=== PATIENT | male | born 1945 | race Caucasian/White ===

== ENCOUNTER 2016-12-16 17:56 | Emergency (ER) | payer MEDICARE, OTHER ==
--- NOTE | 2016-12-16 18:28 | Emergency Department Record ---
History of Present Illness - General Chief Complaint: Chest Pain Stated Complaint: CHEST PRESSURE, Time Seen by Provider: 12/16/16 18:19 Source: Patient Mode of Arrival: Wheelchair Limitations: No limitations - History of Present Illness Initial Comments: pt had a knee replacement in early october. he has been doing well. today he did physical therapy and then went home and mowed his lawn. while he was mowing his lawn he developed chest tightness 4/10, sob and felt near syncopal. he feels better now and his discomfort is down to a 1/10. pt has a hx of htn, hi chol and strong family hx. pt does not smoke MD Complaint: Chest pain Onset/Timin -: Hour(s) Onset: During exertion Pain Location: Substernal Pain Radiation: RUE Severity: Mild Consistency: Intermittent Improves With: Rest Worsens With: Exertion Context: New medications Other Symptoms: Burping - Related Data Home Medications Medication Instructions Recorded Confirmed Last Taken Naproxen Sodium [Aleve] 2 tab PO BID 12/16/16 12/16/16 12/16/16 Allergies Allergy/AdvReac Type Severity Reaction Status Date / Time Sulfa (Sulfonamide Allergy HIVES Verified 12/16/16 18:02 Antibiotics) Travel Screening - Travel/Exposure Within Last 30 Days Have you traveled within the last 30 days?: No - Travel/Exposure Within Last Year Have you traveled outside the [place] in the last year?: No - Additonal Travel Details Have you been exposed to anyone with a communicable illness?: No - Travel Symptoms Symptom Screening: None Review of Systems Reviewed: No additional complaints except as noted below Constitutional: Reports: As per HPI. Denies: Chills, Fever, Malaise, Night sweats, Weakness, Weight change Eyes: Reports: As per HPI. Denies: Eye discharge, Eye pain, Photophobia, Vision change ENT: Reports: As per HPI. Denies: Congestion, Dental pain, Ear pain, Epistaxis , Hearing loss, Throat pain Respiratory: Reports: As per HPI. Denies: Cough, Dyspnea, Hemoptysis, Stridor, Wheezes Cardiovascular: Reports: As per HPI. Denies: Arrhythmia, Chest pain, Dyspnea on exertion, Edema, Murmurs, Orthopnea, Palpitations, Paroxysmal nocturnal dyspnea, Rheumatic Fever, Syncope Endocrine: Reports: As per HPI. Denies: Fatigue, Heat or cold intolerance, Polydipsia, Polyuria Gastrointestinal: Reports: As per HPI. Denies: Abdominal pain, Constipation, Diarrhea, Hematemesis, Hematochezia, Melena, Nausea, Vomiting Genitourinary: Reports: As per HPI. Denies: Dysuria, Frequency, Hematuria, Incontinence, Retention, Testicular pain, Testicular mass, Urgency Musculoskeletal: Reports: As per HPI. Denies: Arthralgia, Back pain, Gout, Joint swelling, Myalgia, Neck pain Skin: Reports: As per HPI. Denies: Bruising, Change in color, Change in hair/ nails, Lesions, Pruritus, Rash Neurological: Reports: As per HPI. Denies: Abnormal gait, Confusion, Headache, Numbness, Paresthesias, Seizure, Tingling, Tremors, Vertigo, Weakness Psychiatric: Reports: As per HPI. Denies: Anxiety, Auditory hallucinations, Depression, Homicidal thoughts, Suicidal thoughts, Visual hallucinations Hematological/Lymphatic: Reports: As per HPI. Denies: Anemia, Blood Clots, Easy bleeding, Easy bruising, Swollen glands Past Medical History - SOCIAL HISTORY Smoking Status: Never smoker Alcohol Use: Occasional Drug Use: None - RESPIRATORY Hx Respiratory Disorders: No - CARDIOVASCULAR Hx Cardio Disorders: Yes Hx Hypertension: Yes Comment:: hypercholesteremia - NEURO Hx Neuro Disorders: No - GI Hx GI Disorders: No - Hx Genitourinary Disorders: No - ENDOCRINE Hx Endocrine Disorders: No - MUSCULOSKELETAL Hx Musculoskeletal Disorders: No - PSYCH Hx Psych Problems: No - HEMATOLOGY/ONCOLOGY Hx Hematology/Oncology Disorders: No Family Medical History Any Significant Family History?: Yes Hx Dementia: Mother Hx Heart Disease: Father, Brother/Sister Physical Exam - General General Appearance: Alert, Oriented x3, Cooperative, Mild distress - Head Head exam: Normal inspection - Eye Eye exam: Normal appearance, PERRL, EOMI Pupils: Normal accommodation - ENT ENT exam: Normal exam, Mucous membranes moist, Normal external ear exam, Normal orophraynx Ear exam: Normal external inspection. negative: External canal tenderness Nasal Exam: Normal inspection. negative: Discharge, Sinus tenderness Mouth exam: Normal external inspection, Tongue normal Teeth exam: Normal inspection. negative: Dental caries Throat exam: Normal inspection. negative: Tonsillar erythema, Tonsillar exudate - Neck Neck exam: Normal inspection, Full ROM. negative: Tenderness - Respiratory Respiratory exam: Normal lung sounds bilaterally. negative: Respiratory distress - Cardiovascular Cardiovascular Exam: Regular rate, Normal rhythm, Normal heart sounds - GI/Abdominal GI/Abdominal exam: Soft, Normal bowel sounds. negative: Tenderness - Rectal Rectal exam: Deferred - exam: Deferred - Extremities Extremities exam: Normal inspection, Full ROM, Normal capillary refill. negative: Tenderness - Back Back exam: Reports: Normal inspection, Full ROM. Denies: Muscle spasm, Rash noted, Tenderness - Neurological Neurological exam: Alert, CN II-XII intact, Normal gait, Oriented X3 - Psychiatric Psychiatric exam: Normal affect, Normal mood - Skin Skin exam: Dry, Intact, Normal color, Warm Course Vital Signs 12/16/16 18:05 Temperature 98.4 F Pulse Rate 81 Respiratory 18 Rate Blood Pressure 117/74 Pulse Ox 98 - Reevaluation(s) Reevaluation #1: 12/16/16 18:45 care is being assumed by dr monory Medical Decision Making - Lab Data Result diagrams: 12/16/16 18:08 12/16/16 18:08 Disposition Forms: Patient Portal Access Quality - Quality Measures Quality Measures: N/A - Blood Pressure Screening Does Patient Have Any of the Following: No Blood Pressure Classification: Normal BP Reading Systolic Measurement: 117 Diastolic Measurement: 74 Screening for High Blood Pressure: < Normal BP, F/U Not Required > [G8783]
[2016-12-16] MEDS ORDERED: NITROGLYCERIN 0.4MG SL TABLET #25 BTL SL ONE (18:29)
[2016-12-16] MEDS ORDERED: ASPIRIN 81 MG CHEWABLE TABLET PO ONE (18:29)
[2016-12-16 18:45] LABS: BASO % 0.8 % (0-6); EOS % 4.5 % (0-6); GRAN % 54.8 % (47-80); HEMATOCRIT 45.2 % (42.0-52.0); HEMOGLOBIN 15.5 gm/dl (14.0-18.0); LYMPH % 25.9 % (16-45); MEAN CELL VOLUME 84.6 fl (81-97); MEAN CORPUSCULAR HGB CONC 34.3 g/dl (32-36); PLATELET COUNT 284 K/uL (130-400); RED BLOOD COUNT 5.34 M/uL (4.40-5.70); RED CELL DISTRIBUTION WIDTH 13.2 % (11.5-14.5); WHITE BLOOD COUNT W/O DIFF 7.8 K/uL (4.2-12.2)
[2016-12-16 19:03] LABS: ALB/GLOB RATIO 1.5 (1.1-1.8); ALBUMIN 4.4 g/dL (4.0-5.0); ALKALINE PHOSPHATASE 86 U/L (40-129); ALT/SGPT 13 U/L (<41); AST/SGOT 20 U/L (10.0-50.0); BLOOD UREA NITROGEN 22 mg/dL (8-23); CKMB 1.4 ng/mL (<6.73); CREATINE PHOSPHOKINASE 94 U/L (39-308); CREATININE 0.8 mg/dL (0.7-1.2); EST GLOMERULAR FILTRATION RATE > 60 mL/min; GLUCOSE,RANDOM 99 mg/dL (74-109); TOTAL PROTEIN 7.4 g/dL (6.6-8.7)
--- NOTE | 2016-12-16 19:14 | Emergency Department Record ---
History of Present Illness - General Chief Complaint: Chest Pain Stated Complaint: CHEST PRESSURE, Time Seen by Provider: 12/16/16 18:19 Source: Patient Mode of Arrival: Wheelchair Limitations: No limitations - History of Present Illness Onset/Timin -: Hour(s) Onset: During exertion Pain Location: Substernal Pain Radiation: RUE Severity: Mild Consistency: Intermittent Improves With: Rest Worsens With: Exertion Context: New medications Other Symptoms: Burping - Related Data Home Medications Medication Instructions Recorded Confirmed Last Taken Naproxen Sodium [Aleve] 2 tab PO BID 12/16/16 12/16/16 12/16/16 Allergies Allergy/AdvReac Type Severity Reaction Status Date / Time Sulfa (Sulfonamide Allergy HIVES Verified 12/16/16 18:02 Antibiotics) Travel Screening - Travel/Exposure Within Last 30 Days Have you traveled within the last 30 days?: No - Travel/Exposure Within Last Year Have you traveled outside the [place] in the last year?: No - Additonal Travel Details Have you been exposed to anyone with a communicable illness?: No - Travel Symptoms Symptom Screening: None Review of Systems Constitutional: Reports: As per HPI. Denies: Chills, Fever, Malaise, Night sweats, Weakness, Weight change Eyes: Reports: As per HPI. Denies: Eye discharge, Eye pain, Photophobia, Vision change ENT: Reports: As per HPI. Denies: Congestion, Dental pain, Ear pain, Epistaxis , Hearing loss, Throat pain Respiratory: Reports: As per HPI. Denies: Cough, Dyspnea, Hemoptysis, Stridor, Wheezes Cardiovascular: Reports: As per HPI. Denies: Arrhythmia, Chest pain, Dyspnea on exertion, Edema, Murmurs, Orthopnea, Palpitations, Paroxysmal nocturnal dyspnea, Rheumatic Fever, Syncope Endocrine: Reports: As per HPI. Denies: Fatigue, Heat or cold intolerance, Polydipsia, Polyuria Gastrointestinal: Reports: As per HPI. Denies: Abdominal pain, Constipation, Diarrhea, Hematemesis, Hematochezia, Melena, Nausea, Vomiting Genitourinary: Reports: As per HPI. Denies: Dysuria, Frequency, Hematuria, Incontinence, Retention, Testicular pain, Testicular mass, Urgency Musculoskeletal: Reports: As per HPI. Denies: Arthralgia, Back pain, Gout, Joint swelling, Myalgia, Neck pain Skin: Reports: As per HPI. Denies: Bruising, Change in color, Change in hair/ nails, Lesions, Pruritus, Rash Neurological: Reports: As per HPI. Denies: Abnormal gait, Confusion, Headache, Numbness, Paresthesias, Seizure, Tingling, Tremors, Vertigo, Weakness Psychiatric: Reports: As per HPI. Denies: Anxiety, Auditory hallucinations, Depression, Homicidal thoughts, Suicidal thoughts, Visual hallucinations Hematological/Lymphatic: Reports: As per HPI. Denies: Anemia, Blood Clots, Easy bleeding, Easy bruising, Swollen glands Past Medical History - SOCIAL HISTORY Smoking Status: Never smoker Alcohol Use: Occasional Drug Use: None - RESPIRATORY Hx Respiratory Disorders: No - CARDIOVASCULAR Hx Cardio Disorders: Yes Hx Hypertension: Yes Comment:: hypercholesteremia - NEURO Hx Neuro Disorders: No - GI Hx GI Disorders: No - Hx Genitourinary Disorders: No - ENDOCRINE Hx Endocrine Disorders: No - MUSCULOSKELETAL Hx Musculoskeletal Disorders: No - PSYCH Hx Psych Problems: No - HEMATOLOGY/ONCOLOGY Hx Hematology/Oncology Disorders: No Family Medical History Any Significant Family History?: Yes Hx Dementia: Mother Hx Heart Disease: Father, Brother/Sister Physical Exam - General Limitations: No limitations Course Vital Signs 12/16/16 18:05 Temperature 98.4 F Pulse Rate 81 Respiratory 18 Rate Blood Pressure 117/74 Pulse Ox 98 - Reevaluation(s) Reevaluation #1: 12/16/16 19:12 Labs reviewed, D-Dimer 2.93, labs are otherwise grossly unremarkable for an acute process. EKG: NSR 97, PACs Normal axis, normal intervals No acute ST-T wave changes are present Patient was updated on all results, reports that he is resting pain-free currently. Reevaluation #2: 12/16/16 20:02 CTA Chest: No PE, No dissection, Severe coronary calcifications. After discussion with the patient and his CTA findings, will initiate transfer to [facility] for likely heart cath tomorrow. Reevaluation #3: 12/16/16 20:13 Case was discussed with Dr. Pineda, will accept transfer for further evaluation. Medical Decision Making - Lab Data Result diagrams: 12/16/16 18:08 12/16/16 18:08 Lab Results 12/16/16 12/16/16 12/16/16 Range/Units 18:08 18:08 18:08 WBC 7.8 (4.2-12.2) K/uL RBC 5.34 (4.40-5.70) M/uL Hgb 15.5 (14.0-18.0) gm/dl Hct 45.2 (42.0-52.0) % MCV 84.6 (81-97) fl MCH 29.0 (27-33) pg MCHC 34.3 (32-36) g/dl RDW 13.2 (11.5-14.5) % Plt Count 284 (130-400) K/uL MPV 11.0 H (7.4-10.4) fl Gran % 54.8 (47-80) % Lymphocytes % 25.9 (16-45) % Monocytes % 14.0 H (0-9) % Eosinophils % 4.5 (0-6) % Basophils % 0.8 (0-6) % D-Dimer 2.93 H (0-0.59) mg/L FEU Sodium 139 (136-145) mmol/L Potassium 3.2 L (3.4-4.5) mmol/L Chloride 96 L (98-107) mmol/L Carbon Dioxide 28.0 (22-29) mmol/L Anion Gap 15.0 (7-16) BUN 22 (8-23) mg/dL Creatinine 0.8 (0.7-1.2) mg/dL Estimated GFR > 60 mL/min Random Glucose 99 (74-109) mg/dL Calcium 9.4 (8.8-10.2) mg/dL Total Bilirubin 0.70 (0.2-1.0) mg/dL AST 20 (10.0-50.0) U/L ALT 13 (<41) U/L Alkaline Phosphatase 86 (40-129) U/L Creatine Kinase 94 (39-308) U/L CK-MB (CK-2) 1.4 (<6.73) ng/mL Troponin T < 0.010 (0-0.010) ng/mL Total Protein 7.4 (6.6-8.7) g/dL Albumin 4.4 (4.0-5.0) g/dL Globulin 3.0 (1.4-4.8) gm/dL Albumin/Globulin Ratio 1.5 (1.1-1.8) Disposition Disposition: Transfer Clinical Impression: CAD (coronary artery disease) Chest pain Qualifiers: Chest pain type: unspecified Qualified Code(s): R07.9 - Chest pain, unspecified Disposition: Acute Care Hospital Transfer [facility] Reason For Transfer: Cardiology consultation Accepting Physician: Miriam Time Discussed w/Accepting Physician: 20:14 Condition: (2) Stable Forms: Patient Portal Access Time of Disposition: 20:14 Quality - Quality Measures Quality Measures: N/A - Blood Pressure Screening Does Patient Have Any of the Following: No Blood Pressure Classification: Normal BP Reading Systolic Measurement: 117 Diastolic Measurement: 74 Screening for High Blood Pressure: < Normal BP, F/U Not Required > [G8783]
--- NOTE | 2016-12-19 06:50 | CT ANGIOGRAM REPORT ---
DATE: 12/16/2016 at 1924. EXAM: CTA OF THE CHEST. HISTORY: Acute generalized chest tightness and syncope. COMPARISON: None. TECHNIQUE: Contiguous axial images from the thoracic inlet to the upper abdomen were obtained after the uneventful intravenous administration of 75 mL of Omnipaque 350. Sagittal and coronal two-dimensional as well as 3-D/MIP reformatted images were obtained for better anatomic delineation. FINDINGS: Minimal dependent atelectasis. The lungs are clear. No pleural effusion. Central airways are patent. The heart is not enlarged, and there is no pericardial effusion. Severe coronary artery calcification. No enlarged lymph nodes in the thorax. The pulmonary arteries are well opacified. No filling defect to suggest pulmonary embolism. No thoracic aortic dissection or aneurysm. The upper abdomen is unremarkable. No lytic or blastic osseous lesion. IMPRESSION: 1. NO ACUTE INTRATHORACIC PROCESS WITH NO PULMONARY EMBOLISM OR THORACIC AORTIC DISSECTION. 2. SEVERE CORONARY ARTERY CALCIFICATION. JOB NUMBER: [id number] MTDD
== END 2016-12-16 22:29 | disposition short-term general hospital (02) ==
LOC: ER 17:56
DX: R07.2 Precordial pain (principal); I25.84 Coronary atherosclerosis due to calcified coronary lesion; I25.10 Atherosclerotic heart disease of native coronary artery without angina pectoris; R55 Syncope and collapse; I10 Essential (primary) hypertension
CPT/HCPCS: 99285 ×2; 82550; 85025; 82553; 80053; 84484; 85379; 71275; 93005; 93010; Q9967